=== PATIENT | male | born 1990 | race Caucasian/White ===

== ENCOUNTER 2016-09-13 16:15 | Outpatient (CLI) | payer OTHER ==
[2016-09-13] MEDS ORDERED: GADOBUTROL 10 MMOL/10 ML SYRINGE IVP ONE (17:38)
--- NOTE | 2016-09-15 05:10 | MRI Report ---
EXAM: MRI LUMBAR SPINE WITHOUT AND WITH CONTRAST EXAM DATE: 09/13/2016 05:53 PM. CLINICAL HISTORY: LOW BACK PAIN. COMPARISONS: O contrast lumbar spine MRI from 12/19/2015. TECHNIQUE: Multiplanar, multisequence T1-weighted and fluid-sensitive sequences of the lumbar spine f rom T12 to S1 before and after administration of intravenous contrast. IV contrast: 10 mL of Gadavist . Other: None. FINDINGS: Spinal Cord: The conus terminates at L1. No signal abnormality in the visualized spinal cord. Alignment: Normal. No scoliosis or spondylolisthesis. Bone Marrow: Five [id number] lumbar vertebral bodies are assumed. No gross fractures or bone les ions. No bone marrow edema or abnormal enhancement. Disk Levels/Facets: T12-L1: Unremarkable on sagittal images. L1-L2: Unremarkable. L2-L3: Unremarkable. L3-L4: A tiny disk bulge is present without spinal canal or foraminal stenosis. These findings are st able. L4-L5: There is a mild disk bulge with mild bilateral facet arthropathy. This results in mild bilater al foraminal narrowing, left greater than right but without spinal canal stenosis. These findings are stable. L5-S1: Interval increased size in the left paracentral protrusion is present with more obvious imping ement of the descending left S1 nerve root and more prominent mild spinal canal stenosis. Disk height loss and bilateral facet arthropathy result in mild bilateral foraminal narrowing, stable. Spinal Canal: No enhancing masses within the spinal canal. No epidural abscess. Musculature: Normal. No edema, abnormal enhancement, or fatty atrophy. Other: The visualized pelvic cavity is unremarkable. IMPRESSION: 1. Interval enlargement of the left paracentral protrusion at L5-S1 with more apparent spinal canal s tenosis and impingement of the descending left S1 nerve root compared to the lumbar spine MRI from . 2. Mild degenerative changes at L3-L4 and L4-L5 are stable compared to the prior MRI. 3. No abnormal enhancement to suggest lumbar spinal infection. Comment: The following findings are so common in adults without low back pain that while we report th eir presence, they must be interpreted with caution and in the context of the clinical situation. (Re ana Salas et al, Spine 2001) Prevalence of findings in patients without low back pain: Disk degeneration (any evidence): 92% Disk desiccation/T2 signal loss: 83% Disk height loss: 56% Disk bulge: 64% Disk protrusion: 32% Annular tear/high intensity zone: 38% [facility] Referring Provider Line: [phone] SITE ID: [id number]
== END 2016-09-13 16:16 | disposition home or self-care (01) ==
LOC: DI 16:15
PROVIDERS: ATTEND Nurse Practitioner Family
DX: M51.27 Other intervertebral disc displacement, lumbosacral region (principal); M47.896 Other spondylosis, lumbar region; M47.897 Other spondylosis, lumbosacral region
CPT/HCPCS: 72158; A9585

== ENCOUNTER 2016-09-24 21:39 | Emergency (ER) | payer OTHER ==
--- NOTE | 2016-09-24 22:23 | ED Physician Documentation ---
History of Present Illness - Stated complaint Stated Complaint: NUMBNESS BOTH LEGS - Chief complaint Chief Complaint: Neuro - History obtained from History obtained from: Patient - History of Present Illness Timing: Today Pain level now: 8 Improved by: rest Worsened by: ambulation, standing - Additonal information Additional information: "I have a bulging disc L5-S1 causing numbness in my legs", per patient. He says he is scheduled to have surgery to address this. Tonight, while at home, he stood up and had sudden shooting, severe pain in buttocks and down BLE, associated with his BLE numbness, causing him to fall. He does not describe clear/tory weakness. He did not lose consciousness. He was gradually able to get back up. Surgery is scheduled for 10/11 (discectomy). His symptoms have improved prior to this evaluation and he was able to ambulate from to his ED stretcher. He denies bowel/bladder incontinence Review of Systems Constitutional: denies: Fever, Chills, Sweats GI: reports: Reviewed and negative : denies: Unable to Void, Incontinent Musculoskeletal: reports: Back pain Neurologic: reports: Numbness. denies: Generalized weakness, Focal weakness PD PAST MEDICAL HISTORY - Past Medical History Past Medical History: Yes - Past Surgical History Past Surgical History: Yes - Present Medications Home Medications: Ambulatory Orders Medication Instructions Recorded Confirmed Amox/Clav 875/125 [Augmentin] 1 each PO Q12H #20 tablet 12/31/15 HYDROcod/ACETAM 5/325 [[place] 5/325] 1 - 2 ea PO Q6H PRN #15 tablet 12/31/15 Meloxicam 1 tab PO DAILY 12/31/15 12/31/15 Ofloxacin [Floxin] 4 ml OT BID 7 Days 12/31/15 Prednisone 40 mg PO DAILY 4 Days 09/24/16 oxyCODONE/ACET 5/325 [Percocet 5 1 - 2 each PO Q6H PRN #20 tablet 09/24/16 mg/325 mg] - Allergies Allergies/Adverse Reactions: Allergies Allergy/AdvReac Type Severity Reaction Status Date / Time No Known Drug Allergies Allergy Verified 09/24/16 21:47 - Social History Does the pt smoke?: No Smoking Status: Never smoker Does the pt drink ETOH?: No Does the pt have substance abuse?: No - Immunizations Immunizations are current?: Yes PD ED PE NORMAL - Vitals Vital signs reviewed: Yes - General General: Alert and oriented X 3, No acute distress, Well developed/nourished - Back Back: Other (mild TTP mildline lower lumbar and bilateral lower paralumbar without visible or palpable abnormality (including: no erythema, fluctuance, crepitus, or swelling)) - Derm Derm: Normal color, Warm and dry - Extremities Extremities: No edema - Neuro Neuro: Alert and oriented X 3, No motor deficit (5/5 right dorsi/plantarflexion and 5/5 iliopsoas. 4/5 left dorsi/plantarflexion and 4/5 iliopsoas (patient says this discrepency is not new)), No sensory deficit (LTS intact bilateral LE including feet and toes) Results - Vitals Vitals: Vital Signs - 24 hr 09/24/16 09/24/16 21:45 23:05 Temperature 37 C Heart Rate 87 80 Respiratory 14 17 Rate Blood Pressure 146/92 H 134/94 H O2 Saturation 99 95 Oxygen O2 Source Room air PD MEDICAL DECISION MAKING - ED course Complexity details: considered differential, d/w patient Departure - Departure Disposition: 01 Home, Self Care Clinical Impression: Back pain Condition: Good Instructions: ED Neck Back Pain General Follow-Up: QUINTIN BARRETO [Primary Care Provider] - Prescriptions: oxyCODONE/ACET 5/325 [Percocet 5 mg/325 mg] 1 - 2 each PO Q6H PRN #20 tablet PRN Reason: Pain Prednisone 40 mg PO DAILY 4 Days Discharge Date/Time: 09/24/16 23:12
[2016-09-24] MEDS ORDERED: predniSONE 20 MG TABLET ONE (22:55)
[2016-09-24] MEDS ORDERED: oxyCODONE/ACET 5/325 Prepack 4 PO ONE (22:55)
[2016-09-24] MEDS: predniSONE 20 MG TABLET PO STA (23:00)
[2016-09-24] MEDS: oxyCODONE/ACET 5/325 Prepack 4 PO STA (23:01)
[2016-09-24 23:12] VITALS: BP 134/94
== END 2016-09-24 23:12 | disposition home or self-care (01) ==
LOC: ED 21:39
DX: M54.5 Low back pain (principal); W18.30XA Fall on same level, unspecified, initial encounter; Y92.019 Unspecified place in single-family (private) house as the place of occurrence of the external cause
CPT/HCPCS: 99283

== ENCOUNTER 2016-12-17 12:04 | Outpatient (CLI) | payer OTHER | END 2016-12-17 12:05 | disposition EMS.NT | LOC: EMS 12:04 | PROVIDERS: ATTEND Surgery | DX: R09.89 Other specified symptoms and signs involving the circulatory and respiratory systems (principal) ==

== ENCOUNTER 2016-12-17 13:07 | Emergency (ER) | payer OTHER ==
--- NOTE | 2016-12-17 13:25 | ED Physician Documentation ---
PD HPI CHEST PAIN - Stated complaint Stated Complaint: SOA - Chief complaint Chief Complaint: General - History obtained from History obtained from: Patient, EMS - History of Present Illness Timing - onset: Today Timing - onset during: Rest (he had been feeling generally tired and then while lying on couch, noted heart rate to be slow about 50s, then it sped up faster and he felt some dyspnea. He had felt like he was not taking normal breath prior to sympotoms of the heart rate, and had taken PO pain meds shortly before onset of these symptoms.) Timing - duration: Minutes Timing - details: Abrupt onset, Now resolved Quality: No: Pressure Location: Substernal, Left chest Associated symptoms: Shortness of air, General Weakness, Palpitations. No: Nausea, Vomiting, Feeling faint / dizzy, Cough Recently seen: Surgery (had low back surgery 5 days ago in [place]. Has been up and ambulatory some. Released from hospital yesterday.) Review of Systems Constitutional: denies: Fever, Chills Nose: denies: Rhinorrhea / runny nose, Congestion Throat: denies: Sore throat Cardiac: reports: Palpitations. denies: Pedal edema, Calf pain Respiratory: reports: Dyspnea (for few minutes, better now.). denies: Cough, Wheezing GI: denies: Abdominal Pain, Nausea, Vomiting, Diarrhea Skin: denies: Rash Neurologic: denies: Focal weakness, Numbness PD PAST MEDICAL HISTORY - Past Medical History Cardiovascular: None Respiratory: None Neuro: None Endocrine/Autoimmune: None Musculoskeletal: Chronic back pain, Other - Past Surgical History Past Surgical History: Yes - Present Medications Home Medications: Ambulatory Orders Medication Instructions Recorded Confirmed oxyCODONE/ACET 5/325 [Percocet 5 1 - 2 each PO Q6H PRN #20 tablet 09/24/1612/17 mg/325 mg] Gabapentin 0 mg PO DAILY 12/17/16 12/17/16 hydrOXYzine PAMOATE [Vistaril] 25 mg PO PRN PRN 12/17/16 12/17/16 - Allergies Allergies/Adverse Reactions: Allergies Allergy/AdvReac Type Severity Reaction Status Date / Time No Known Drug Allergies Allergy Verified 09/24/16 21:47 - Social History Does the pt smoke?: No Smoking Status: Never smoker Does the pt drink ETOH?: No Does the pt have substance abuse?: No - Immunizations Immunizations are current?: Yes - POLST Patient has POLST: No PD ED PE NORMAL - Vitals Vital signs reviewed: Yes - General General: Alert and oriented X 3, No acute distress, Well developed/nourished - HEENT HEENT: Ears normal, Moist mucous membranes, Pharynx benign - Neck Neck: Supple, no meningeal sign, No adenopathy - Cardiac Cardiac: RRR, No murmur - Respiratory Respiratory: Clear bilaterally - Abdomen Abdomen: Normal bowel sounds, Soft, Non tender, Non distended - Back Back: Other (low back with healing wound without signs of infection. ) - Derm Derm: Normal color, Warm and dry - Extremities Extremities: No tenderness to palpate, Normal ROM s pain, No edema, No calf tenderness / cord - Neuro Neuro: Alert and oriented X 3, headlight assembler 2-12 intact, No motor deficit, No sensory deficit, Normal speech - Psych Psych: Normal mood, Normal affect Results - Vitals Vitals: Oxygen O2 Source Room air - EKG (time done) 13:49 Rate: Rate (enter#) (72) Rhythm: NSR [place]: Normal Intervals: Normal MT QRS: Normal Ischemia: Normal ST segments. No: ST elevation c/w ischemia, ST depression Compare to prior EKG: Old EKG unavailable - Labs Labs: Laboratory Tests 12/17/16 12/17/16 12/17/16 13:37 13:55 13:55 WBC 6.6 RBC 5.21 Hgb 14.7 Hct 43.5 MCV 83.5 MCH 28.3 MCHC 33.9 RDW 12.8 Plt Count 284 MPV 6.9 L Neut # 3.0 Lymph # 2.4 Cache # 0.7 Eos # 0.4 Baso # 0.1 Absolute Nucleated RBC 0.00 Nucleated RBC % 0.0 Sodium 137 Potassium 4.2 Chloride 97 L Carbon Dioxide 28 Anion Gap 12.0 BUN 15 Creatinine 1.0 Estimated GFR (MDRD) 90 Glucose 101 H Calcium 10.0 Total Bilirubin 0.7 AST 42 ALT 49 Alkaline Phosphatase 43 Total Protein 8.4 H Albumin 4.4 Globulin 4.0 Albumin/Globulin Ratio 1.1 Lipase 26 Urine Color YELLOW Urine Clarity CLEAR Urine pH 7.5 Ur Specific [place] 1.010 Urine Protein NEGATIVE Urine Glucose (UA) NEGATIVE Urine Ketones NEGATIVE Urine Occult Blood NEGATIVE Urine Nitrite NEGATIVE Urine Bilirubin NEGATIVE Urine Urobilinogen 0.2 (NORMAL) Ur Leukocyte Esterase NEGATIVE Ur Microscopic Review NOT INDICATED Urine Culture Comments NOT INDICATED - Rads (name of study) chest Radiology: Prelim report reviewed (no acute process) duplex U/S legs Radiology: Prelim report reviewed (no DVT) PD MEDICAL DECISION MAKING - ED course Complexity details: reviewed results, considered differential (he is feeling okay here. Had felt heart going fast with some dyspnea earlier. He is post operative back surgery. So looked for CXR, urine test, labs, and did U/S of legs to eval for DVT. These are all okay. ), d/w patient Departure - Departure Disposition: Home, Self Care Clinical Impression: Irregular heart rhythm, Postoperative back pain Condition: Stable Record reviewed to determine appropriate education?: Yes Follow-Up: QUINTIN BARRETO [Primary Care Provider] - Comments: The feeling of irregular heartbeat may have been related to the combination of medicines or perhaps hydration status. I do not know for sure. However there is no signs of significant or serious problem going on at this time. Continue the medications but perhaps separate of the Vistaril and pain medicine in time and not take together. Be sure to drink lots of fluids. Otherwise follow-up with your primary care in the next few days. Return or follow-up sooner if you have recurring feelings of irregular heartbeat. Discharge Date/Time: 12/17/16 16:42
[2016-12-17 13:57] LABS: BILIRUBIN,URINE NEGATIVE (NEGATIVE); PH,URINE 7.5 PH (5.0-7.5)
[2016-12-17 13:58] LABS: UA CHARGE (STRIP ONLY) YES; UR CULTURE IF IND NOT INDICATED
[2016-12-17 14:07] LABS: BASOPHILS # (AUTO) 0.1 10^3/uL (0.0-0.1); EOSINOPHILS # (AUTO) 0.4 10^3/uL (0.0-0.7); EOSINOPHILS % (AUTO) 5.9 %; HCT - HEMATOCRIT 43.5 % (42.0-52.0); HGB - HEMOGLOBIN 14.7 g/dL (14.0-18.0); LYMPHOCYTES # (AUTO) 2.4 10^3/uL (1.5-3.5); LYMPHOCYTES % (AUTO) 36.6 %; MEAN CORPUSCULAR HEMOGLOBIN 28.3 pg (27.0-31.0); MEAN CORPUSCULAR HGB CONC 33.9 g/dL (32.0-36.0); MEAN CORPUSCULAR VOLUME 83.5 fL (80.0-94.0); MEAN PLATELET VOLUME 6.9 fL (7.4-11.4); MONOCYTES # (AUTO) 0.7 10^3/uL (0.0-1.0); MONOCYTES % (AUTO) 11.1 %; NEUTROPHILS % (AUTO) 45.4 %; RED BLOOD COUNT 5.21 10^6/uL (4.70-6.10); RED CELL DISTRIBUTION WIDTH 12.8 % (12.0-15.0); UNCORRECTED WHITE BLOOD COUNT 6.6 x10^3/uL; WHITE BLOOD COUNT 6.6 x10^3/uL (4.8-10.8)
[2016-12-17 14:21] LABS: ALBUMIN/GLOBULIN RATIO 1.1 (1.0-2.2); BILIRUBIN,TOTAL 0.7 mg/dL (0.2-1.0); POTASSIUM 4.2 mmol/L (3.5-5.0); TOTAL PROTEIN 8.4 g/dL (6.7-8.2)
--- NOTE | 2016-12-17 15:42 | XRAY Preliminary Report ---
Exam: XR Chest 2 View PA/LAT IMPRESSION: Normal 2-view chest radiography. [facility] SITE ID: [id number]
[2016-12-17] MEDS ORDERED: oxyCODONE 5 MG TABLET ONE (15:46)
[2016-12-17] MEDS: oxyCODONE 5 MG TABLET PO STA (15:46)
--- NOTE | 2016-12-17 15:54 | XRAY Report ---
EXAM: CHEST RADIOGRAPHY EXAM DATE: 12/17/2016 03:32 PM. CLINICAL HISTORY: Postop back surgery; dyspnea this morning. COMPARISON: None. TECHNIQUE: 2 views. FINDINGS: Lungs/Pleura: No focal opacities evident. No pleural effusion. No pneumothorax. Normal volumes. Mediastinum: Heart and mediastinal contours are unremarkable. Other: None. IMPRESSION: Normal 2-view chest radiography. [facility] Referring Provider Line: [phone] SITE ID: [id number]
[2016-12-17 16:35] VITALS: BP 123/61
--- NOTE | 2016-12-17 17:57 | Ultrasound Report ---
BILATERAL LOWER EXTREMITY VENOUS DUPLEX: 12/17/2016 CLINICAL INDICATION: Four days status post back surgery, pain. TECHNIQUE: Real-time sonographic vascular imaging was performed by the photo retoucher through the [facility] lower extremities utilizing both color flow and Doppler spectral analysis. Multiple representat jazz static images were saved for review. FINDINGS: A bilateral lower extremity venous sonogram is performed revealing the common femoral, sup erficial femoral, profunda femoris, and popliteal veins to be adequately visualized without intralumi nal defects. There is normal venous compression, augmentation, phasicity, and spontaneity of venous flow. In the calf, the visualized more cephalad portions of posterior tibial and peroneal veins are grossly compressible, without filling defects. IMPRESSION: NO EVIDENCE OF DEEP VENOUS THROMBOSIS. JOB #: [id number] EXT JOB #:
== END 2016-12-17 16:42 | disposition home or self-care (01) ==
LOC: EDUNIT# → ED 13:07
DX: I49.9 Cardiac arrhythmia, unspecified (principal); M54.9 Dorsalgia, unspecified; G89.18 Other acute postprocedural pain
CPT/HCPCS: 36415; 71020; 80053; 81003; 83690; 85025; 93005; 93970; 99283; 99284; A9270; 81001; 87086

== ENCOUNTER 2017-11-01 22:30 | Emergency (ER) | payer OTHER ==
[2017-11-01 22:36] VITALS: BP 140/88
[2017-11-01] MEDS ORDERED: PROPARACAINE 0.5% OPHTH DROPS 15 ML EACHEYE STA (22:50)
[2017-11-01] MEDS ORDERED: POLYMYXIN B/TRIMETH OPHTH DROPS LEFTEYE STA (23:05)
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
== END 2017-11-01 23:18 | disposition home or self-care (01) ==
LOC: ED 22:30
DX: S05.02XA Injury of conjunctiva and corneal abrasion without foreign body, left eye, initial encounter (principal)
CPT/HCPCS: 99283; A9270; J3490